=== PATIENT | male | born 1950 | race Caucasian/White ===

== ENCOUNTER 2017-07-04 19:11 | Inpatient (IN) | payer OTHER ==
[2017-07-05] MEDS: hydrALAzine 20 MG INJ IV ×2 (04:26→16:44)
[2017-07-05] MEDS: ACETAMINOPHEN 325 MG TAB PO (04:27)
[2017-07-05 04:34] LABS: ADD MAN DIFF? NO
[2017-07-05 04:42] LABS: BASOPHILS % 0.6 % (0.0-2.0); EOSINOPHILS # 0.1 10^3/ul (0.0-0.5); HEMATOCRIT 27.3 % (42.0-52.0); HEMOGLOBIN 9.2 g/dl (14.0-18.0); LYMPHOCYTES # 1.1 10^3/ul (0.8-2.9); LYMPHOCYTES % 16.8 % (15.0-51.0); MEAN CORPUSCULAR HEMOGLOBIN 28.9 pg (29.0-33.0); MEAN CORPUSCULAR HGB CONC 33.7 g/dl (32.0-37.0); MEAN CORPUSCULAR VOLUME 85.8 fl (82.0-101.0); MEAN PLATELET VOLUME 10.5 fl (7.4-10.4); MONOCYTE # 0.7 10^3/ul (0.3-0.9); MONOCYTES % 11.3 % (0.0-11.0); NEUTROPHIL # 4.5 10^3/ul (1.6-7.5); PLATELET COUNT 254 10^3/UL (140-415); RED BLOOD COUNT 3.18 10^6/ul (4.70-6.10); RED CELL DISTRIBUTION WIDTH 14.4 % (11.5-14.5)
[2017-07-05 04:42] LABS: WHITE BLOOD COUNT 6.5 10^3/ul (4.8-10.8)
[2017-07-05 04:48] LABS: ADD UMIC YES; UR ASCORBIC ACID NEGATIVE (NEGATIVE); UR BILIRUBIN (Dip) NEGATIVE (NEGATIVE); UR BLOOD (Dip) 1+ mg/dL (NEGATIVE); UR CLARITY CLEAR (CLEAR); UR COLOR YELLOW (YELLOW); UR GLUCOSE (Dip) 3+ mg/dL (NEGATIVE); UR KETONES (Dip) TRACE mg/dL (NEGATIVE); UR LEUKOCYTE ESTERASE (Dip) NEGATIVE Leu/ul (NEGATIVE); UR NITRITE (Dip) NEGATIVE (NEGATIVE); UR RBC 7 /HPF (0-5); UR TOTAL PROTEIN (Dip) 3+ mg/dl (NEGATIVE); UR UROBILINOGEN (Dip) NEGATIVE (NEGATIVE); UR WBC 2 /HPF (0-5)
[2017-07-05 05:01] LABS: INR 0.96; PROTIME 12.9 Sec (11.9-14.9)
[2017-07-05 05:02] LABS: PARTIAL THROMBOPLASTIN TIME 34.5 Sec (25.0-35.0)
[2017-07-05 05:14] LABS: ALANINE AMINOTRANSFERASE 39 IU/L (13-69); ALKALINE PHOSPHATASE 123 IU/L (42-121); ANION GAP 14 (8-16); ASPARTATE AMINO TRANSFERASE 33 IU/L (15-46); BLOOD UREA NITROGEN 34 mg/dl (7-20); CALCIUM 8.1 mg/dl (8.4-10.2); CARBON DIOXIDE 24 mmol/L (21-31); CHLORIDE 111 mmol/L (97-110); CREATININE 3.57 mg/dl (0.61-1.24); GLUCOSE 114 mg/dl (70-220); POTASSIUM 3.9 mmol/L (3.5-5.1); SODIUM 145 mmol/L (135-144)
[2017-07-05 05:38] LABS: TROPONIN-I 0.134 ng/ml (0.00-0.12)
[2017-07-05 07:00] LABS: LACTIC ACID 0.7 mmol/L (0.5-2.0)
[2017-07-05] MEDS: CEFTRIAXONE 1 GM/50 ML (PMX) 50 ML IVPB ×2 (07:18→12:52)
[2017-07-05] MEDS: ALBUTEROL 0.083% (NEB) 2.5 MG/3 ML AMP HHN (07:36)
[2017-07-05 07:37] LABS: LACTIC ACID 0.6 mmol/L (0.5-2.0)
[2017-07-05] MEDS: AZITHROMYCIN 500MG/NS (PMX) 250 ML IVPB (08:26)
[2017-07-05] MEDS ORDERED: GLUCOSE GEL 15 GRAM TUBE BUCCAL (13:00)
[2017-07-05] MEDS ORDERED: ZOLPIDEM 5 MG TAB PO (13:00)
[2017-07-05] MEDS ORDERED: DOCUSATE SODIUM 100 MG CAP PO (13:00)
[2017-07-05] MEDS ORDERED: GLUCOSE GEL 15 GRAM TUBE PO ×2 (13:00)
[2017-07-05] MEDS ORDERED: DEXTROSE 50% 50 ML SYRINGE IV ×2 (13:00)
[2017-07-05] MEDS ORDERED: morphine 2 MG INJ IV (13:00)
[2017-07-05] MEDS ORDERED: HYDROCODONE/APAP (5/325) TAB PO (13:00)
[2017-07-05] MEDS ORDERED: NITROGLYCERIN (SL) 0.4 MG TAB SL (13:00)
[2017-07-05] MEDS ORDERED: GLUCAGON 1 MG INJ IM (13:00)
[2017-07-05] MEDS ORDERED: NACL 0.9% 3 ML SYG IV (13:00)
[2017-07-05] MEDS: FAMOTIDINE 20 MG TAB PO (14:40)
[2017-07-05] MEDS: INSULIN ASPART [NOVOLOG] 3 ML PEN SC ×2 (16:47→21:00)
[2017-07-05 20:25] LABS: CREATINE KINASE 447 IU/L (23-200)
[2017-07-05 20:31] LABS: CK INDEX 0.5; TROPONIN-I 0.088 ng/ml (0.00-0.12)
[2017-07-05 20:32] LABS: CK-MB 2.02 ng/ml (0.0-2.4)
[2017-07-05 20:48] LABS: SODIUM,URINE RANDOM 16 mmol/L (30-90)
[2017-07-05] MEDS: ATORVASTATIN 40 MG TAB PO ×2 (21:00→21:13)
[2017-07-05 21:10] LABS: CREATININE,URINE RANDOM 181.49 mg/dl (20-370)
[2017-07-05] MEDS: LABETALOL 100 MG TAB PO (21:15)
[2017-07-05 23:01] LABS: PROTEIN URINE > 600.0 mg/dl (0.0-11.9)
[2017-07-06] MEDS: hydrALAzine 20 MG INJ IV ×2 (00:54→08:30)
[2017-07-06 01:42] LABS: CREATINE KINASE 433 IU/L (23-200)
[2017-07-06 01:55] LABS: CK INDEX 0.4; CK-MB 1.61 ng/ml (0.0-2.4); TROPONIN-I 0.072 ng/ml (0.00-0.12)
[2017-07-06] MEDS: ACCU-CHEK XX (02:00)
[2017-07-06] MEDS: ACETAMINOPHEN 325 MG TAB PO ×2 (02:50→13:35)
[2017-07-06] MEDS: ALBUTEROL/IPRATROPIUM (NEB) 3 ML AMP HHN ×4 (03:19→20:14)
[2017-07-06 05:30] LABS: ADD MAN DIFF? NO
[2017-07-06 05:38] LABS: BASOPHILS % 0.3 % (0.0-2.0); EOSINOPHILS # 0.1 10^3/ul (0.0-0.5); EOSINOPHILS % 1.9 % (0.0-7.0); HEMATOCRIT 24.2 % (42.0-52.0); HEMOGLOBIN 7.9 g/dl (14.0-18.0); LYMPHOCYTES # 1.2 10^3/ul (0.8-2.9); LYMPHOCYTES % 17.3 % (15.0-51.0); MEAN CORPUSCULAR HEMOGLOBIN 28.2 pg (29.0-33.0); MEAN CORPUSCULAR HGB CONC 32.6 g/dl (32.0-37.0); MEAN CORPUSCULAR VOLUME 86.4 fl (82.0-101.0); MEAN PLATELET VOLUME 9.3 fl (7.4-10.4); MONOCYTE # 0.7 10^3/ul (0.3-0.9); MONOCYTES % 9.7 % (0.0-11.0); NEUTROPHIL # 4.9 10^3/ul (1.6-7.5); NEUTROPHILS % 70.4 % (39.0-77.0); PLATELET COUNT 183 10^3/UL (140-415); RED CELL DISTRIBUTION WIDTH 14.2 % (11.5-14.5)
[2017-07-06] MEDS: CEFTRIAXONE 1 GM/50 ML (PMX) 50 ML IVPB (06:09)
[2017-07-06 06:11] LABS: CREATINE KINASE 432 IU/L (23-200)
[2017-07-06 06:11] LABS: URIC ACID 7.1 mg/dl (3.1-7.9)
[2017-07-06 06:30] LABS: ANION GAP 13 (8-16); BLOOD UREA NITROGEN 42 mg/dl (7-20); CALCIUM 7.7 mg/dl (8.4-10.2); CARBON DIOXIDE 22 mmol/L (21-31); CHLORIDE 113 mmol/L (97-110); GLUCOSE 110 mg/dl (70-220); MAGNESIUM 2.2 mg/dl (1.7-2.5); POTASSIUM 4.2 mmol/L (3.5-5.1); SODIUM 144 mmol/L (135-144)
[2017-07-06] MEDS: INSULIN ASPART [NOVOLOG] 3 ML PEN SC ×4 (07:35→18:33)
[2017-07-06] MEDS: AZITHROMYCIN 500MG/NS (PMX) 250 ML IV ×2 (08:04→08:29)
[2017-07-06] MEDS: FAMOTIDINE 20 MG TAB PO (08:45)
[2017-07-06] MEDS: LABETALOL 100 MG TAB PO ×2 (08:45→21:17)
[2017-07-06] MEDS: ASPIRIN (EC) 325 MG TAB PO (08:45)
[2017-07-06] MEDS: ENOXAPARIN 30 MG/0.3 ML SYG SC (08:52)
[2017-07-06] MEDS ORDERED: LOSARTAN 50 MG TAB PO (09:00)
[2017-07-06 09:38] LABS: AADO2 Arterial 88.2 mmHg (7.0-24.0); Allen Test ACCEPTAB; Arterial Base Excess -3.5 mmol/L (-3.0-3); Arterial Blood Gas Oxygen Sat 96.1 mmHG (95.0-98.0); Arterial COHb 0.3 % (0.0-3.0); Arterial Fraction of Oxyhgb 95.6 % (93.0-99.0); Arterial HCO3 20.6 mmol/L (22.0-26.0); Arterial MetHb 0.2 % (0.0-1.5); Arterial Total Hemglobin 8.8 g/dl (12.0-18.0); Arterial pCO2 33.1 mmhg (35-45); MODE HFNC; Site Right Radial
[2017-07-06] MEDS ORDERED: AZITHROMYCIN 500MG/NS (PMX) 250 ML IVPB (10:00)
[2017-07-06] MEDS: REGADENOSON 0.4 MG/5 ML SYG (10:41)
[2017-07-06] MEDS: NIFEdipine (XL) 30 MG TAB PO ×2 (12:45→21:16)
[2017-07-06] MEDS: EPOETIN 10000 UNITS/1 ML INJ (ESRD) SC (17:30)
[2017-07-06] MEDS: ATORVASTATIN 40 MG TAB PO (21:16)
[2017-07-07] MEDS: ACCU-CHEK XX (01:03)
[2017-07-07] MEDS: ALBUTEROL/IPRATROPIUM (NEB) 3 ML AMP HHN ×6 (02:52→20:04)
[2017-07-07] MEDS: CEFTRIAXONE 1 GM/50 ML (PMX) 50 ML IVPB (06:48)
[2017-07-07] MEDS: INSULIN ASPART [NOVOLOG] 3 ML PEN SC ×4 (08:00→22:24)
[2017-07-07 09:16] LABS: CHOL/HDL RATIO 2.7 RATIO; CREATINE KINASE 767 IU/L (23-200); HDL CHOLESTEROL 55 mg/dl (30-78); LDL CHOLESTEROL,CALCULATED 79 mg/dl; TRIGLYCERIDES 91 mg/dl (0-149)
[2017-07-07 09:26] LABS: CK INDEX 0.3
[2017-07-07 09:27] LABS: IRON < 10 ug/dl (35-150)
[2017-07-07 09:29] LABS: CK-MB 2.09 ng/ml (0.0-2.4)
[2017-07-07 09:29] LABS: CHOLESTEROL 152 mg/dl (100-200)
[2017-07-07 09:31] LABS: TOTAL IRON BINDING CAPACITY 286 ug/dl (241-421)
[2017-07-07] MEDS: ASPIRIN (EC) 325 MG TAB PO (09:31)
[2017-07-07] MEDS: FAMOTIDINE 20 MG TAB PO (09:31)
[2017-07-07] MEDS: LABETALOL 100 MG TAB PO ×2 (09:32→22:24)
[2017-07-07] MEDS: AZITHROMYCIN 500MG/NS (PMX) 250 ML IVPB (09:32)
[2017-07-07] MEDS: NIFEdipine (XL) 30 MG TAB PO ×2 (09:32→22:23)
[2017-07-07] MEDS: ENOXAPARIN 30 MG/0.3 ML SYG SC (09:34)
[2017-07-07] MEDS: ONDANSETRON 4 MG INJ IV (10:39)
[2017-07-07 14:15] LABS: OCCULT BLOOD STOOL POSITIVE (NEGATIVE)
[2017-07-07] MEDS: ATORVASTATIN 40 MG TAB PO (22:24)
[2017-07-08] MEDS: ALBUTEROL/IPRATROPIUM (NEB) 3 ML AMP HHN ×4 (01:27→19:12)
[2017-07-08] MEDS: ACCU-CHEK XX (01:51)
[2017-07-08] MEDS: CEFTRIAXONE 1 GM/50 ML (PMX) 50 ML IVPB (06:33)
[2017-07-08 07:38] LABS: ADD MAN DIFF? NO
[2017-07-08 07:54] LABS: BASOPHILS % 0.1 % (0.0-2.0); EOSINOPHILS % 0.5 % (0.0-7.0); HEMATOCRIT 24.8 % (42.0-52.0); HEMOGLOBIN 8.1 g/dl (14.0-18.0); LYMPHOCYTES # 1.1 10^3/ul (0.8-2.9); LYMPHOCYTES % 14.5 % (15.0-51.0); MEAN CORPUSCULAR HEMOGLOBIN 28.6 pg (29.0-33.0); MEAN CORPUSCULAR HGB CONC 32.7 g/dl (32.0-37.0); MEAN CORPUSCULAR VOLUME 87.6 fl (82.0-101.0); MEAN PLATELET VOLUME 9.9 fl (7.4-10.4); MONOCYTE # 0.4 10^3/ul (0.3-0.9); MONOCYTES % 5.1 % (0.0-11.0); NEUTROPHILS % 79.4 % (39.0-77.0); PLATELET COUNT 187 10^3/UL (140-415); RED BLOOD COUNT 2.83 10^6/ul (4.70-6.10); RED CELL DISTRIBUTION WIDTH 13.9 % (11.5-14.5)
[2017-07-08 07:54] LABS: WHITE BLOOD COUNT 7.5 10^3/ul (4.8-10.8)
[2017-07-08 07:57] LABS: ANION GAP 18 (8-16); BLOOD UREA NITROGEN 58 mg/dl (7-20); CALCIUM 7.9 mg/dl (8.4-10.2); CARBON DIOXIDE 21 mmol/L (21-31); CHLORIDE 108 mmol/L (97-110); CREATININE 6.19 mg/dl (0.61-1.24); GLUCOSE 104 mg/dl (70-220); SODIUM 142 mmol/L (135-144)
[2017-07-08] MEDS: INSULIN ASPART [NOVOLOG] 3 ML PEN SC ×4 (08:00→21:01)
[2017-07-08 08:04] LABS: POTASSIUM 5.2 mmol/L (3.5-5.1)
[2017-07-08] MEDS: LABETALOL 100 MG TAB PO ×2 (09:49→20:54)
[2017-07-08] MEDS: FAMOTIDINE 20 MG TAB PO (09:49)
[2017-07-08] MEDS: AZITHROMYCIN 250 MG TAB PO (09:50)
[2017-07-08] MEDS: NIFEdipine (XL) 30 MG TAB PO ×2 (09:50→20:55)
[2017-07-08] MEDS: ASPIRIN (EC) 325 MG TAB PO (09:50)
[2017-07-08] MEDS ORDERED: FUROSEMIDE 40 MG INJ (11:36)
[2017-07-08] MEDS: ENOXAPARIN 30 MG/0.3 ML SYG SC (11:53)
[2017-07-08] MEDS: NA POLYST SULFON 15 GM/60 ML BTL PO (11:55)
[2017-07-08] MEDS: ALBUMIN HUMAN 25% 100 ML IV ×2 (11:56→22:43)
[2017-07-08] MEDS: FUROSEMIDE 40 MG INJ IV ×2 (13:50→23:48)
[2017-07-08] MEDS: ATORVASTATIN 40 MG TAB PO (20:54)
[2017-07-09] MEDS: ALBUTEROL/IPRATROPIUM (NEB) 3 ML AMP HHN ×4 (01:23→20:07)
[2017-07-09] MEDS: ACCU-CHEK XX (02:17)
[2017-07-09] MEDS: CEFTRIAXONE 1 GM/50 ML (PMX) 50 ML IVPB (06:25)
[2017-07-09 08:41] LABS: ADD MAN DIFF? NO
[2017-07-09 08:44] LABS: WHITE BLOOD COUNT 7.3 10^3/ul (4.8-10.8)
[2017-07-09 08:44] LABS: BASOPHILS % 0.1 % (0.0-2.0); EOSINOPHILS % 0.1 % (0.0-7.0); HEMATOCRIT 23.6 % (42.0-52.0); HEMOGLOBIN 7.7 g/dl (14.0-18.0); LYMPHOCYTES # 1.1 10^3/ul (0.8-2.9); LYMPHOCYTES % 15.6 % (15.0-51.0); MEAN CORPUSCULAR HEMOGLOBIN 28.3 pg (29.0-33.0); MEAN CORPUSCULAR HGB CONC 32.6 g/dl (32.0-37.0); MEAN CORPUSCULAR VOLUME 86.8 fl (82.0-101.0); MEAN PLATELET VOLUME 10.4 fl (7.4-10.4); MONOCYTE # 0.4 10^3/ul (0.3-0.9); MONOCYTES % 5.2 % (0.0-11.0); NEUTROPHIL # 5.7 10^3/ul (1.6-7.5); NEUTROPHILS % 78.5 % (39.0-77.0); PLATELET COUNT 179 10^3/UL (140-415); RED BLOOD COUNT 2.72 10^6/ul (4.70-6.10); RED CELL DISTRIBUTION WIDTH 13.8 % (11.5-14.5)
[2017-07-09] MEDS: INSULIN ASPART [NOVOLOG] 3 ML PEN SC ×4 (08:55→20:31)
[2017-07-09 09:13] LABS: ANION GAP 19 (8-16); BLOOD UREA NITROGEN 73 mg/dl (7-20); CALCIUM 7.5 mg/dl (8.4-10.2); CARBON DIOXIDE 20 mmol/L (21-31); CHLORIDE 107 mmol/L (97-110); CREATININE 7.27 mg/dl (0.61-1.24); GLUCOSE 132 mg/dl (70-220); POTASSIUM 4.3 mmol/L (3.5-5.1); SODIUM 142 mmol/L (135-144)
[2017-07-09] MEDS: FAMOTIDINE 20 MG TAB PO (09:54)
[2017-07-09] MEDS: ASPIRIN (EC) 325 MG TAB PO (09:54)
[2017-07-09] MEDS: LABETALOL 100 MG TAB PO ×2 (09:54→20:29)
[2017-07-09] MEDS: AZITHROMYCIN 250 MG TAB PO (09:54)
[2017-07-09] MEDS: NIFEdipine (XL) 30 MG TAB PO ×2 (09:55→20:29)
[2017-07-09] MEDS: ALBUMIN HUMAN 25% 100 ML IV ×2 (09:55→20:29)
[2017-07-09] MEDS: ENOXAPARIN 30 MG/0.3 ML SYG SC (09:57)
[2017-07-09] MEDS ORDERED: SOD CHLORIDE 0.9% 250 ML IV* (11:12)
[2017-07-09] MEDS: FUROSEMIDE 40 MG INJ IV ×2 (11:50→21:32)
[2017-07-09] MEDS: ATORVASTATIN 40 MG TAB PO (20:29)
[2017-07-10] MEDS: ALBUTEROL/IPRATROPIUM (NEB) 3 ML AMP HHN ×4 (01:17→20:22)
[2017-07-10] MEDS: ACCU-CHEK XX (01:41)
[2017-07-10 06:06] LABS: ADD MAN DIFF? NO
[2017-07-10] MEDS: CEFTRIAXONE 1 GM/50 ML IVPB (06:11)
[2017-07-10 06:14] LABS: BASOPHILS % 0.1 % (0.0-2.0); EOSINOPHILS # 0.1 10^3/ul (0.0-0.5); EOSINOPHILS % 1.5 % (0.0-7.0); HEMATOCRIT 24.1 % (42.0-52.0); HEMOGLOBIN 8.1 g/dl (14.0-18.0); LYMPHOCYTES # 1.3 10^3/ul (0.8-2.9); LYMPHOCYTES % 16.3 % (15.0-51.0); MEAN CORPUSCULAR HEMOGLOBIN 28.7 pg (29.0-33.0); MEAN CORPUSCULAR HGB CONC 33.6 g/dl (32.0-37.0); MEAN CORPUSCULAR VOLUME 85.5 fl (82.0-101.0); MONOCYTE # 0.5 10^3/ul (0.3-0.9); MONOCYTES % 5.5 % (0.0-11.0); NEUTROPHIL # 6.2 10^3/ul (1.6-7.5); NEUTROPHILS % 76.2 % (39.0-77.0); PLATELET COUNT 193 10^3/UL (140-415); RED BLOOD COUNT 2.82 10^6/ul (4.70-6.10); RED CELL DISTRIBUTION WIDTH 13.9 % (11.5-14.5)
[2017-07-10 06:14] LABS: WHITE BLOOD COUNT 8.2 10^3/ul (4.8-10.8)
[2017-07-10 07:01] LABS: ANION GAP 21 (8-16); BLOOD UREA NITROGEN 81 mg/dl (7-20); CALCIUM 7.8 mg/dl (8.4-10.2); CARBON DIOXIDE 19 mmol/L (21-31); CHLORIDE 108 mmol/L (97-110); CREATININE 8.08 mg/dl (0.61-1.24); GLUCOSE 113 mg/dl (70-220); POTASSIUM 4.2 mmol/L (3.5-5.1); SODIUM 144 mmol/L (135-144)
[2017-07-10] MEDS: INSULIN ASPART [NOVOLOG] 3 ML PEN SC ×4 (08:00→21:00)
[2017-07-10] MEDS: NIFEdipine (XL) 30 MG TAB PO ×2 (09:29→21:13)
[2017-07-10] MEDS: FAMOTIDINE 20 MG TAB PO (09:29)
[2017-07-10] MEDS: ASPIRIN (EC) 325 MG TAB PO (09:30)
[2017-07-10] MEDS: AZITHROMYCIN 250 MG TAB PO (09:30)
[2017-07-10] MEDS: LABETALOL 100 MG TAB PO ×2 (09:30→21:13)
[2017-07-10] MEDS: ENOXAPARIN 30 MG/0.3 ML SYG SC (09:31)
[2017-07-10] MEDS: ALBUMIN HUMAN 25% 100 ML IV ×2 (09:34→21:12)
[2017-07-10] MEDS: FUROSEMIDE 40 MG INJ IV ×2 (10:31→21:14)
[2017-07-10] MEDS: ATORVASTATIN 40 MG TAB PO (21:12)
[2017-07-11] MEDS: ACCU-CHEK XX (02:00)
[2017-07-11] MEDS: ALBUTEROL/IPRATROPIUM (NEB) 3 ML AMP HHN ×4 (02:06→20:02)
[2017-07-11] MEDS: CEFTRIAXONE 1 GM/50 ML IVPB (06:23)
[2017-07-11] MEDS: INSULIN ASPART [NOVOLOG] 3 ML PEN SC ×4 (08:00→21:03)
[2017-07-11 08:57] LABS: ADD MAN DIFF? NO
[2017-07-11 08:58] LABS: BASOPHILS % 0.1 % (0.0-2.0); EOSINOPHILS # 0.3 10^3/ul (0.0-0.5); EOSINOPHILS % 3.6 % (0.0-7.0); HEMATOCRIT 22.9 % (42.0-52.0); HEMOGLOBIN 7.6 g/dl (14.0-18.0); LYMPHOCYTES # 1.3 10^3/ul (0.8-2.9); LYMPHOCYTES % 15.6 % (15.0-51.0); MEAN CORPUSCULAR HEMOGLOBIN 28.4 pg (29.0-33.0); MEAN CORPUSCULAR HGB CONC 33.2 g/dl (32.0-37.0); MEAN CORPUSCULAR VOLUME 85.4 fl (82.0-101.0); MEAN PLATELET VOLUME 10.4 fl (7.4-10.4); MONOCYTE # 0.5 10^3/ul (0.3-0.9); MONOCYTES % 6.3 % (0.0-11.0); NEUTROPHIL # 5.9 10^3/ul (1.6-7.5); PLATELET COUNT 211 10^3/UL (140-415); RED BLOOD COUNT 2.68 10^6/ul (4.70-6.10); RED CELL DISTRIBUTION WIDTH 13.9 % (11.5-14.5)
[2017-07-11] MEDS: FAMOTIDINE 20 MG TAB PO (09:16)
[2017-07-11] MEDS: ASPIRIN (EC) 325 MG TAB PO (09:16)
[2017-07-11] MEDS: AZITHROMYCIN 250 MG TAB PO (09:16)
[2017-07-11] MEDS: ALBUMIN HUMAN 25% 100 ML IV ×2 (09:16→20:58)
[2017-07-11] MEDS: LABETALOL 100 MG TAB PO ×2 (09:21→20:59)
[2017-07-11] MEDS: NIFEdipine (XL) 30 MG TAB PO ×2 (09:21→20:59)
[2017-07-11] MEDS: ENOXAPARIN 30 MG/0.3 ML SYG SC (09:23)
[2017-07-11 09:26] LABS: ANION GAP 24 (8-16); BLOOD UREA NITROGEN 90 mg/dl (7-20); CALCIUM 7.6 mg/dl (8.4-10.2); CARBON DIOXIDE 18 mmol/L (21-31); CHLORIDE 108 mmol/L (97-110); CREATININE 8.57 mg/dl (0.61-1.24); GLUCOSE 98 mg/dl (70-220); POTASSIUM 4.2 mmol/L (3.5-5.1); SODIUM 146 mmol/L (135-144)
[2017-07-11] MEDS: FUROSEMIDE 40 MG INJ IV ×2 (10:58→21:01)
[2017-07-11] MEDS: SOD CHLORIDE 0.9% 250 ML IV* (15:09)
[2017-07-11 17:03] LABS: ADD UMIC YES; UR AMORPHOUS CRYSTAL MANY /HPF (NONE SEEN); UR ASCORBIC ACID NEGATIVE (NEGATIVE); UR BACTERIA FEW /HPF (NONE SEEN); UR BILIRUBIN (Dip) NEGATIVE (NEGATIVE); UR BLOOD (Dip) 1+ mg/dL (NEGATIVE); UR CLARITY CLOUDY (CLEAR); UR COLOR YELLOW (YELLOW); UR GLUCOSE (Dip) 1+ mg/dL (NEGATIVE); UR HYALINE CAST FEW /HPF (NONE SEEN); UR KETONES (Dip) NEGATIVE (NEGATIVE); UR LEUKOCYTE ESTERASE (Dip) NEGATIVE Leu/ul (NEGATIVE); UR NITRITE (Dip) NEGATIVE (NEGATIVE); UR RBC 2 /HPF (0-5); UR SPECIFIC GRAVITY (Dip) 1.013 (1.003-1.030); UR TOTAL PROTEIN (Dip) 3+ mg/dl (NEGATIVE); UR UROBILINOGEN (Dip) NEGATIVE (NEGATIVE); UR WBC 3 /HPF (0-5)
[2017-07-11 17:06] LABS: IMMEDIATE SPIN CROSSMATCH 1 2
[2017-07-11] MEDS: ATORVASTATIN 40 MG TAB PO (20:58)
[2017-07-12] MEDS: ACCU-CHEK XX (01:51)
[2017-07-12] MEDS: ALBUTEROL/IPRATROPIUM (NEB) 3 ML AMP HHN ×4 (02:06→19:33)
[2017-07-12] MEDS: INSULIN ASPART [NOVOLOG] 3 ML PEN SC ×4 (08:00→21:00)
[2017-07-12] MEDS: ALBUMIN HUMAN 25% 100 ML IV ×2 (08:34→21:16)
[2017-07-12] MEDS: ASPIRIN (EC) 325 MG TAB PO (08:41)
[2017-07-12] MEDS: FAMOTIDINE 20 MG TAB PO (08:41)
[2017-07-12] MEDS: NIFEdipine (XL) 30 MG TAB PO ×2 (08:41→21:24)
[2017-07-12] MEDS: LABETALOL 100 MG TAB PO ×2 (08:41→21:23)
[2017-07-12] MEDS: CITRIC ACID/SODIUM CITRATE 15 ML CUP PO ×3 (08:41→21:18)
[2017-07-12 08:54] LABS: ADD MAN DIFF? NO
[2017-07-12 09:05] LABS: WHITE BLOOD COUNT 8.8 10^3/ul (4.8-10.8)
[2017-07-12 09:05] LABS: BASOPHILS % 0.2 % (0.0-2.0); EOSINOPHILS # 0.5 10^3/ul (0.0-0.5); EOSINOPHILS % 5.4 % (0.0-7.0); HEMATOCRIT 26.3 % (42.0-52.0); HEMOGLOBIN 8.9 g/dl (14.0-18.0); LYMPHOCYTES # 1.5 10^3/ul (0.8-2.9); LYMPHOCYTES % 16.4 % (15.0-51.0); MEAN CORPUSCULAR HEMOGLOBIN 28.6 pg (29.0-33.0); MEAN CORPUSCULAR HGB CONC 33.8 g/dl (32.0-37.0); MEAN CORPUSCULAR VOLUME 84.6 fl (82.0-101.0); MEAN PLATELET VOLUME 10.5 fl (7.4-10.4); MONOCYTE # 0.6 10^3/ul (0.3-0.9); MONOCYTES % 6.5 % (0.0-11.0); NEUTROPHIL # 6.2 10^3/ul (1.6-7.5); NEUTROPHILS % 70.8 % (39.0-77.0); PLATELET COUNT 223 10^3/UL (140-415); RED BLOOD COUNT 3.11 10^6/ul (4.70-6.10); RED CELL DISTRIBUTION WIDTH 13.8 % (11.5-14.5)
[2017-07-12 09:31] LABS: ANION GAP 25 (8-16); BLOOD UREA NITROGEN 97 mg/dl (7-20); CALCIUM 7.6 mg/dl (8.4-10.2); CARBON DIOXIDE 16 mmol/L (21-31); CHLORIDE 107 mmol/L (97-110); CREATININE 9.05 mg/dl (0.61-1.24); GLUCOSE 100 mg/dl (70-220); POTASSIUM 4.3 mmol/L (3.5-5.1); SODIUM 144 mmol/L (135-144)
[2017-07-12] MEDS: ENOXAPARIN 30 MG/0.3 ML SYG SC (09:43)
[2017-07-12] MEDS: FUROSEMIDE 40 MG INJ IV ×2 (11:21→21:28)
[2017-07-12] MEDS: ATORVASTATIN 40 MG TAB PO (21:17)
[2017-07-13] MEDS: ALBUTEROL/IPRATROPIUM (NEB) 3 ML AMP HHN ×4 (01:18→20:08)
[2017-07-13] MEDS: ACCU-CHEK XX ×2 (02:00→23:25)
[2017-07-13 08:00] LABS: ADD MAN DIFF? NO
[2017-07-13] MEDS: INSULIN ASPART [NOVOLOG] 3 ML PEN SC ×4 (08:00→20:47)
[2017-07-13 08:06] LABS: BASOPHILS % 0.2 % (0.0-2.0); EOSINOPHILS # 0.6 10^3/ul (0.0-0.5); EOSINOPHILS % 6.8 % (0.0-7.0); HEMATOCRIT 25.8 % (42.0-52.0); HEMOGLOBIN 8.6 g/dl (14.0-18.0); LYMPHOCYTES # 1.2 10^3/ul (0.8-2.9); LYMPHOCYTES % 14.9 % (15.0-51.0); MEAN CORPUSCULAR HEMOGLOBIN 28.4 pg (29.0-33.0); MEAN CORPUSCULAR HGB CONC 33.3 g/dl (32.0-37.0); MEAN CORPUSCULAR VOLUME 85.1 fl (82.0-101.0); MEAN PLATELET VOLUME 10.1 fl (7.4-10.4); MONOCYTE # 0.5 10^3/ul (0.3-0.9); NEUTROPHIL # 5.8 10^3/ul (1.6-7.5); NEUTROPHILS % 71.7 % (39.0-77.0); PLATELET COUNT 241 10^3/UL (140-415); RED BLOOD COUNT 3.03 10^6/ul (4.70-6.10); RED CELL DISTRIBUTION WIDTH 13.8 % (11.5-14.5)
[2017-07-13 08:06] LABS: WHITE BLOOD COUNT 8.1 10^3/ul (4.8-10.8)
[2017-07-13 08:36] LABS: ANION GAP 28 (8-16); BLOOD UREA NITROGEN 100 mg/dl (7-20); CALCIUM 7.6 mg/dl (8.4-10.2); CARBON DIOXIDE 15 mmol/L (21-31); CHLORIDE 107 mmol/L (97-110); CREATININE 8.81 mg/dl (0.61-1.24); GLUCOSE 95 mg/dl (70-220); POTASSIUM 4.1 mmol/L (3.5-5.1); SODIUM 146 mmol/L (135-144)
[2017-07-13] MEDS: CITRIC ACID/SODIUM CITRATE 15 ML CUP PO ×3 (09:10→20:45)
[2017-07-13] MEDS: ASPIRIN (EC) 325 MG TAB PO (09:11)
[2017-07-13] MEDS: FAMOTIDINE 20 MG TAB PO (09:11)
[2017-07-13] MEDS: NIFEdipine (XL) 30 MG TAB PO ×2 (09:11→20:47)
[2017-07-13] MEDS: LABETALOL 100 MG TAB PO ×2 (09:12→20:46)
[2017-07-13] MEDS: ALBUMIN HUMAN 25% 100 ML IV ×2 (09:13→20:48)
[2017-07-13] MEDS: ENOXAPARIN 30 MG/0.3 ML SYG SC (09:14)
[2017-07-13] MEDS: FUROSEMIDE 40 MG INJ IV ×2 (10:35→20:50)
[2017-07-13] MEDS: FLUCONAZOLE 100 MG TAB PO (17:13)
[2017-07-13] MEDS: ATORVASTATIN 40 MG TAB PO (20:46)
[2017-07-14] MEDS: ALBUTEROL/IPRATROPIUM (NEB) 3 ML AMP HHN ×4 (01:33→19:01)
[2017-07-14] MEDS: INSULIN ASPART [NOVOLOG] 3 ML PEN SC ×4 (07:50→20:47)
[2017-07-14 08:23] LABS: ADD MAN DIFF? NO
[2017-07-14 08:29] LABS: BASOPHILS % 0.2 % (0.0-2.0); EOSINOPHILS # 0.5 10^3/ul (0.0-0.5); EOSINOPHILS % 5.5 % (0.0-7.0); HEMATOCRIT 24.7 % (42.0-52.0); HEMOGLOBIN 8.2 g/dl (14.0-18.0); LYMPHOCYTES # 1.5 10^3/ul (0.8-2.9); LYMPHOCYTES % 16.9 % (15.0-51.0); MEAN CORPUSCULAR HGB CONC 33.2 g/dl (32.0-37.0); MEAN CORPUSCULAR VOLUME 84.3 fl (82.0-101.0); MEAN PLATELET VOLUME 10.2 fl (7.4-10.4); MONOCYTE # 0.6 10^3/ul (0.3-0.9); MONOCYTES % 6.5 % (0.0-11.0); NEUTROPHIL # 6.1 10^3/ul (1.6-7.5); NEUTROPHILS % 70.2 % (39.0-77.0); PLATELET COUNT 246 10^3/UL (140-415); RED BLOOD COUNT 2.93 10^6/ul (4.70-6.10); RED CELL DISTRIBUTION WIDTH 14.1 % (11.5-14.5)
[2017-07-14 08:29] LABS: WHITE BLOOD COUNT 8.7 10^3/ul (4.8-10.8)
[2017-07-14] MEDS: CITRIC ACID/SODIUM CITRATE 15 ML CUP PO ×3 (08:50→20:44)
[2017-07-14] MEDS: FAMOTIDINE 20 MG TAB PO (08:50)
[2017-07-14] MEDS: ASPIRIN (EC) 325 MG TAB PO (08:51)
[2017-07-14] MEDS: NIFEdipine (XL) 30 MG TAB PO ×2 (08:51→20:45)
[2017-07-14] MEDS: FLUCONAZOLE 100 MG TAB PO (08:51)
[2017-07-14] MEDS: LABETALOL 100 MG TAB PO ×2 (08:52→20:45)
[2017-07-14] MEDS: ALBUMIN HUMAN 25% 100 ML IV ×2 (08:53→20:46)
[2017-07-14] MEDS: ENOXAPARIN 30 MG/0.3 ML SYG SC (08:54)
[2017-07-14 09:02] LABS: ANION GAP 26 (8-16); BLOOD UREA NITROGEN 102 mg/dl (7-20); CALCIUM 7.7 mg/dl (8.4-10.2); CARBON DIOXIDE 17 mmol/L (21-31); CHLORIDE 109 mmol/L (97-110); CREATININE 9.57 mg/dl (0.61-1.24); GLUCOSE 106 mg/dl (70-220); POTASSIUM 4.4 mmol/L (3.5-5.1); SODIUM 148 mmol/L (135-144)
[2017-07-14] MEDS: FUROSEMIDE 40 MG INJ IV ×2 (10:35→20:50)
[2017-07-14] MEDS: ATORVASTATIN 40 MG TAB PO (20:44)
[2017-07-15] MEDS: ACCU-CHEK XX (01:28)
[2017-07-15] MEDS: ALBUTEROL/IPRATROPIUM (NEB) 3 ML AMP HHN ×3 (02:21→13:47)
[2017-07-15] MEDS: FUROSEMIDE 40 MG TAB PO (05:37)
[2017-07-15] MEDS: INSULIN ASPART [NOVOLOG] 3 ML PEN SC ×2 (08:00→12:28)
[2017-07-15 09:04] LABS: ADD MAN DIFF? NO
[2017-07-15 09:09] LABS: BASOPHILS % 0.2 % (0.0-2.0); EOSINOPHILS # 0.6 10^3/ul (0.0-0.5); EOSINOPHILS % 6.3 % (0.0-7.0); HEMOGLOBIN 8.4 g/dl (14.0-18.0); LYMPHOCYTES # 1.5 10^3/ul (0.8-2.9); LYMPHOCYTES % 17.2 % (15.0-51.0); MEAN CORPUSCULAR HEMOGLOBIN 28.6 pg (29.0-33.0); MEAN CORPUSCULAR HGB CONC 33.6 g/dl (32.0-37.0); MEAN PLATELET VOLUME 9.4 fl (7.4-10.4); MONOCYTE # 0.6 10^3/ul (0.3-0.9); MONOCYTES % 6.5 % (0.0-11.0); NEUTROPHIL # 6.1 10^3/ul (1.6-7.5); PLATELET COUNT 244 10^3/UL (140-415); RED BLOOD COUNT 2.94 10^6/ul (4.70-6.10)
[2017-07-15 09:09] LABS: WHITE BLOOD COUNT 8.8 10^3/ul (4.8-10.8)
[2017-07-15 09:37] LABS: ANION GAP 29 (8-16); BLOOD UREA NITROGEN 100 mg/dl (7-20); CALCIUM 7.5 mg/dl (8.4-10.2); CARBON DIOXIDE 19 mmol/L (21-31); CHLORIDE 107 mmol/L (97-110); CREATININE 9.95 mg/dl (0.61-1.24); GLUCOSE 116 mg/dl (70-220); POTASSIUM 4.2 mmol/L (3.5-5.1); SODIUM 151 mmol/L (135-144)
[2017-07-15] MEDS: CITRIC ACID/SODIUM CITRATE 15 ML CUP PO ×2 (09:38→15:33)
[2017-07-15] MEDS: FAMOTIDINE 20 MG TAB PO (09:38)
[2017-07-15] MEDS: LABETALOL 100 MG TAB PO (09:39)
[2017-07-15] MEDS: FLUCONAZOLE 100 MG TAB PO (09:40)
[2017-07-15] MEDS: ASPIRIN (EC) 325 MG TAB PO (09:40)
[2017-07-15] MEDS: NIFEdipine (XL) 30 MG TAB PO (09:40)
[2017-07-15] MEDS: ENOXAPARIN 30 MG/0.3 ML SYG SC (09:48)
== END 2017-07-15 16:29 | disposition left against medical advice (07) | DRG 280 ==
LOC: MS4 07-06 10:45 → E/R 19:11 → MS4 07-06 10:57 → MS3 07-05 05:12
PROVIDERS: Internal Medicine
DX: I21.4 Non-ST elevation (NSTEMI) myocardial infarction (principal); J96.01 Acute respiratory failure with hypoxia; I50.33 Acute on chronic diastolic (congestive) heart failure; J18.9 Pneumonia, unspecified organism; N17.9 Acute kidney failure, unspecified; I13.0 Hypertensive heart and chronic kidney disease with heart failure and stage 1 through stage 4 chronic kidney disease, or unspecified chronic kidney disease; E11.22 Type 2 diabetes mellitus with diabetic chronic kidney disease; N18.3 Chronic kidney disease, stage 3 (moderate); N39.0 Urinary tract infection, site not specified; I16.9 Hypertensive crisis, unspecified; B95.5 Unspecified streptococcus as the cause of diseases classified elsewhere; E78.5 Hyperlipidemia, unspecified; D64.9 Anemia, unspecified; Y95 Nosocomial condition; R60.0 Localized edema; E66.9 Obesity, unspecified; G47.33 Obstructive sleep apnea (adult) (pediatric); J40 Bronchitis, not specified as acute or chronic; E87.5 Hyperkalemia; Z68.36 Body mass index [BMI] 36.0-36.9, adult
CPT/HCPCS: 36415; 36430; 36600; 70450; 71045; 76775; 78452; 80048; 80053; 80061; 81001; 81003; 82270; 82550; 82553; 82570; 82803; 82962; 83540; 83605; 83735; 84300; 84484; 84560; 85025; 85610; 85730; 86850; 86900; 86901; 86920; 87040; 87086; 87400; 89190; 93005; 93017; 93306; 93970; 94640; 94664; 96374; 96375; 99291-25